=== PATIENT | female | born 1970 | race Caucasian/White ===

== ENCOUNTER 2023-09-10 07:31 | Day surgery (SDC) | payer OTHER ==
[2023-09-04 11:27] VITALS: BMI 20.7
[2023-09-10] MEDS ORDERED: ceFAZolin SODIUM 1 GM VIAL ONE ×2 (08:35→09:16)
[2023-09-10] MEDS ORDERED: PROPOFOL 40 ML ONE (08:35)
[2023-09-10] MEDS ORDERED: MIDAZOLAM HCL 2 MG/2 ML SINGLE DOSE VIAL ONE (08:36)
[2023-09-10] MEDS ORDERED: LIDOCAINE 1%/EPI 1:100000 (20 ML MULTI DOSE VIAL) ONE (09:16)
[2023-09-10] MEDS ORDERED: ERYTHROMYCIN 0.5% OPHTHALMIC OINTMENT 3.5 GM TUBE ONE (09:16)
[2023-09-10] MEDS ORDERED: POVIDONE-IODINE 5% OPHTHALMIC PREP 30 ML SOLUTION ONE (09:16)
[2023-09-10] MEDS ORDERED: BUPIVACAINE HCL/PF 0.5% (5MG/ML) 10 ML VIAL ONE (09:16)
[2023-09-10] MEDS ORDERED: TETRACAINE 0.5% OPHTH SOLN 2 ML BOTTLE ONE (09:16)
[2023-09-10] MEDS ORDERED: DEXAMETHASONE SOD PHOSPHATE 4 MG/1 ML VIAL ONE (10:05)
[2023-09-10] MEDS ORDERED: ONDANSETRON 4 MG/2 ML VIAL ONE (10:05)
[2023-09-10] MEDS ORDERED: PROPOFOL 20 ML ONE (10:48)
[2023-09-10] MEDS ORDERED: ACETAMINOPHEN INJECTION 100 ML IVPB ONE (11:16)
[2023-09-10] MEDS ORDERED: ONDANSETRON 4 MG/2 ML VIAL IVPUSH PRN (11:18)
[2023-09-10] MEDS: ACETAMINOPHEN 1000 MG/100 ML BAG IVPB ONE (11:20)
[2023-09-10] MEDS ORDERED: LACTATED RINGERS SOLUTION 1,000 ML IV SCH (11:30)
[2023-09-10] MEDS ORDERED: PROMETHAZINE HCL 25 MG/1 ML VIAL ONE (11:32)
[2023-09-10] MEDS: PROMETHAZINE HCL 25 MG/1 ML VIAL IVPB PRN (11:40)
[2023-09-10 12:18] VITALS: RESP 16; TEMP 97.1
[2023-09-10 12:59] VITALS: BP 128/74; PULSE 51
== END 2023-09-10 13:25 | disposition home or self-care (01) ==
LOC: FASU 07:31
PROVIDERS: ATTEND Ophthalmology
PROC: 0KX10Z2 Transfer Facial Muscle with Skin and Subcutaneous Tissue, Open Approach (ICD-10-PCS; 2023-09-10)
PROC: 08UQX7Z Supplement Right Lower Eyelid with Autologous Tissue Substitute, External Approach (ICD-10-PCS; principal; 2023-09-10 10:02)
DX: C44.1222 Squamous cell carcinoma of skin of right lower eyelid, including canthus (principal); H02.89 Other specified disorders of eyelid
CPT/HCPCS: 94760; J0131